=== PATIENT | female | born 1990 | race African-American/Black ===

== ENCOUNTER 2020-10-30 03:29 | Emergency (ER) | payer OTHER ==
[~2020-10-30] VITALS: Ht 167.6 cm; Wt 95.5 kg
--- NOTE | 2020-10-30 03:56 | PHYS DOC ---
Past Medical History Past Medical History: Anxiety, Asthma, Depression, GERD, IBS, Other Additional Past Medical Histor: HIRSCHPRUNGS (KENNA RIVERA DO) Past Surgical History: Gastric Bypass, Other Additional Past Surgical Histo: COLOSTOMY WITH TAKEDOWN, Hernia (KENNA RIVERA DO) Smoking Status: Current Every Day Smoker Alcohol Use: Heavy Drug Use: Marijuana (KENNA RIVERA DO) General Adult EDM: Chief Complaint: ABDOMINAL PAIN HPI: HPI: Patient is a 30 year old female presents with epigastric abdominal discomfort that started this evening with associated nausea and "dry heaves ". Patient reports history of recent laparoscopic hernia surgery in [place] on 10/13/2020. Patient reports symptoms started after she had taken several of her Percocet as well as drink some alcohol this evening. Patient does report history of prior gastric bypass surgery. Denies fever or chills. Denies known sick contacts. (KENNA RIVERA DO) Review of Systems: Review of Systems: Constitutional: Denies fever or chills Eyes: Denies redness or eye pain HENT: Denies nasal congestion or sore throat Respiratory: Denies cough or shortness of breath Cardiovascular: Denies chest pain or palpitations GI: Reports epigastric abdominal pain, nausea, and dry heaves : Denies dysuria or hematuria Musculoskeletal: Denies back pain or joint pain Integument: Denies rash or skin lesions Neurologic: Denies headache, focal weakness or sensory changes Complete systems were reviewed and found to be within normal limits, except as documented in this note. (KENNA RIVERA DO) Heart Score: C/O Chest Pain: N/A (KENNA RIVERA DO) C/O Chest Pain: N/A (STEVE WILEY DO) Current Medications: Current Medications Medications (Trade) Dose Ordered Sig/Geovanna Start Time Stop Time Status Last Admin Dose Admin Famotidine (Pepcid Vial) 20 mg 1X ONCE 10/30/20 04:00 10/30/20 04:01 UNV Ondansetron HCl (Zofran) 4 mg 1X ONCE 10/30/20 04:00 10/30/20 04:01 UNV Sodium Chloride 1,000 ml @ 1,000 mls/hr 1X ONCE 10/30/20 04:00 10/30/20 04:59 UNV (KENNA RIVERA DO) Allergies: Allergies: Allergies Coded Allergies Type Severity Reaction Last Updated Verified Penicillins Allergy 08/03/13 Yes (KENNA RIVERA DO) Physical Exam: PE: Constitutional: Well developed, well nourished, no acute distress, non-toxic appearance HENT: Normocephalic, atraumatic Eyes: Conjunctiva normal, no discharge Neck: Normal range of motion, supple Lungs & Thorax: No respiratory distress, equal chest rise and fall Abdomen: Soft, epigastric tenderness, no McBurney or Wadsworth sign Skin: Warm, dry, no erythema, no rash Back: No tenderness, no CVA tenderness Extremities: No tenderness, ROM intact, no edema Neurologic: Alert and oriented X 3, no focal deficits noted Psychologic: Affect anxious, judgment normal (KENNA RIVERA DO) EKG: EKG: @0351 NSR at 77bpm, NO ST elevation, QRS 80ms, QT/QTc 368/418ms (KENNA RIVERA DO) Radiology/Procedures: Radiology/Procedures: [] (KENNA RIVERA DO) Radiology/Procedures: [facility] [address] [place] [address] IMAGING REPORT Signed PATIENT: JANINE STEEL ACCOUNT: [id number] : 1990 LOCATION: ER AGE: 30 SEX: F EXAM STATUS: PRE ER ORD. PHYSICIAN: KENNA RIVERA DO REASON: abdominal pain, hx of recent hernia sugery 10/13/20 PROCEDURE: CT ABD PELV W/ORAL&IV CONTRAST CT ABDOMEN+PELVIS W History: abdominal pain, hx of recent hernia sugery 10/13/20 Comparison: None. Technique: After administration of intravenous contrast, helical CT of the abdomen and pelvis was performed from the lung bases through the ischial tuberosities. Coronal and sagittal reconstructions were obtained. 75 mL of Omnipaque 300 were used. One or more of the following dose reduction techniques were utilized: Automated exposure control (AEC), Adjustment of mA and/or kV according to patient size, Use of iterative reconstruction technique such as ASiR, CT scan done according to ALARA and image gently/image wisely Abdomen Findings: The visualized lung bases are clear. The liver, gallbladder, pancreas, spleen, and bilateral adrenal glands are normal. Symmetric renal enhancement. There is no focal renal mass. There is no hydronephrosis. Postsurgical changes of Oanh-en-Y gastric bypass. Tiny hiatal hernia. Normal caliber large bowel. Rectal anastomosis. There is no evidence of bowel obstruction. Appendix is not seen. There is no free fluid. There is no mesenteric or retroperitoneal adenopathy. The abdominal aorta is normal in caliber. Pelvis Findings: Urinary bladder is normal. Uterus is present No pelvic free fluid. There is no pelvic or inguinal adenopathy. There is no acute bony abnormality. IMPRESSION: No acute findings. No evidence of obstruction. No fluid collection. Electronically signed by: Shashank Tanner MD (10/30/2020 7:04 AM) [id number] DICTATED and SIGNED BY: SHASHANK TANNER MD DATE: 10/30/20 [id number] (STEVE WILEY DO) Course & Med Decision Making: Course & Med Decision Making Pertinent Labs and Imaging studies reviewed. (See chart for details) Patient presents with epigastric abdominal pain and nausea and dry heaves. History of recent laparoscopic hernia repair. Symptomatic treatment provided. IV fluid hydration given. Labs obtained and posted to chart. CT abdomen/pelvis pending. Signout given to Dr. Wiley for further evaluation and final disposition. Discussed current findings and plan with patient, who acknowledges understanding and agreement. (KENNA RIVERA DO) Course & Med Decision Making Patient is a 30-year-old female who presented to ER due to abdominal pain, CT scan her abdomen pelvis did not show any evidence of obstruction, no acute problem. Patient felt much better at this time. Patient will be discharged home. (STEVE WILEY DO) Dragon Disclaimer: Dragchristopher Disclaimer: This electronic medical record was generated, in whole or in part, using a voice recognition dictation system. (KENNA RIVERA DO) Departure Departure Impression: Primary Impression: Abdominal pain Qualified Codes: R10.13 - Epigastric pain Disposition: HOME / SELF CARE / HOMELESS Condition: IMPROVED Referrals: NON,STAFF (PCP) Please follow up with [facility] this week. [address], [address] [place] [address] Phone number: [phone] Patient Instructions: Abdominal Pain Additional Instructions: Thank you for visiting our Emergency Department. We appreciate you trusting us with your care. If any additional problems come up don't hesitate to return to visit us. Please follow up with your primary care provider so they can plan additional care if needed and know about the problem that you had. If symptoms worsen come back to the Emergency Department. Any concerning symptoms that start such as chest pain, shortness of air, weakness or numbness on one side of the body, running high fevers or any other concerning symptoms return to the ER. KENNA RIVERA DO October 30, 2020 03:56 STEVE WILEY DO October 30, 2020 07:14
[2020-10-30] MEDS ORDERED: ONDANSETRON PF 4 MG/2 ML VIAL. IVP ONE (04:00)
[2020-10-30] MEDS ORDERED: IV NORMAL SALINE 1000ML BAG 1,000 ML IV ONE (04:00)
[2020-10-30] MEDS ORDERED: FAMOTIDINE 20 MG/2 ML VIAL IVP ONE (04:00)
[2020-10-30 04:23] LABS: BILIRUBIN,URINE NEGATIVE (NEG); CLARITY,URINE CLOUDY; COLOR,URINE YELLOW; NITRITE,URINE NEGATIVE (NEG); PROTEIN,URINE NEGATIVE (NEG-TRACE)
[2020-10-30 04:59] LABS: BACTERIA,URINE FEW /HPF (0-FEW)
[2020-10-30] MEDS ORDERED: METOCLOPRAMIDE HCL 10 MG/2 ML VIAL. IVP ONE (05:00)
[2020-10-30] MEDS ORDERED: diphenhydrAMINE 50 MG/ML VIAL IVP ONE (05:00)
[2020-10-30 06:29] LABS: BASO % 1 % (0-3); EOS % 0 % (0-3); HEMATOCRIT 36.1 % (36.0-47.0); HEMOGLOBIN 11.8 g/dL (12.0-15.5); LYMPH # 1.4 x10^3/uL (1.0-4.8); LYMPH % 25 % (24-48); MEAN CORPUSCULAR HEMOGLOBIN 28 pg (25-35); MEAN CORPUSCULAR HGB CONC 33 g/dL (31-37); MEAN CORPUSCULAR VOLUME 85 fL (79-100); MONO # 0.4 x10^3/uL (0.0-1.1); MONO % 8 % (0-9); NEUT # 3.5 x10^3/uL (1.8-7.7); NEUT % 66 % (31-73); PLATELET COUNT 276 x10^3/uL (140-400); RED BLOOD COUNT 4.22 x10^6/uL (3.50-5.40); RED CELL DISTRIBUTION WIDTH 13.9 % (11.5-14.5); WHITE BLOOD COUNT 5.4 x10^3/uL (4.0-11.0)
[2020-10-30 06:40] LABS: CALCIUM 8.3 mg/dL (8.5-10.1); CREATININE 0.6 mg/dL (0.6-1.0); POTASSIUM 3.9 mmol/L (3.5-5.1)
[2020-10-30] MEDS ORDERED: IOHEXOL 300 MG/ML 100ML VIAL. IV ONE (06:45)
[2020-10-30] MEDS ORDERED: IOHEXOL 240 MG/ML 50ML VIAL. PO ONE (06:45)
[2020-10-30] MEDS ORDERED: CONTRAST GIVEN. MC PRN (06:45)
[2020-10-30 06:46] LABS: ALBUMIN 3.6 g/dL (3.4-5.0); ALBUMIN/GLOBULIN RATIO 1.2 (1.0-1.7); MAGNESIUM 1.8 mg/dL (1.8-2.4); TOTAL BILIRUBIN 0.3 mg/dL (0.2-1.0); TOTAL PROTEIN 6.7 g/dL (6.4-8.2)
--- NOTE | 2020-10-30 07:07 | RAD ---
CT ABDOMEN+PELVIS W History: abdominal pain, hx of recent hernia sugery 10/13/20 Comparison: None. Technique: After administration of intravenous contrast, helical CT of the abdomen and pelvis was per formed from the lung bases through the ischial tuberosities. Coronal and sagittal reconstructions wer e obtained. 75 mL of Omnipaque 300 were used. One or more of the following dose reduction techniques were utilized: Automated exposure control (AEC), Adjustment of mA and/or kV according to patient size , Use of iterative reconstruction technique such as ASiR, CT scan done according to ALARA and image g ently/image wisely Abdomen Findings: The visualized lung bases are clear. The liver, gallbladder, pancreas, spleen, and bilateral adrenal glands are normal. Symmetric renal enhancement. There is no focal renal mass. There is no hydronephrosis. Postsurgical changes of Oanh-en-Y gastric bypass. Tiny hiatal hernia. Normal caliber large bowel. Rec danya anastomosis. There is no evidence of bowel obstruction. Appendix is not seen. There is no free fluid. There is no mesenteric or retroperitoneal adenopathy. The abdominal aorta is normal in caliber. Pelvis Findings: Urinary bladder is normal. Uterus is present No pelvic free fluid. There is no pelvic or inguinal fredo nopathy. There is no acute bony abnormality. IMPRESSION: No acute findings. No evidence of obstruction. No fluid collection. Electronically signed by: Angus Tanner MD (10/30/2020 7:04 AM) [id number]
[2020-10-30 07:50] VITALS: BP 125/77
--- NOTE | 2020-10-30 19:01 | EKG ---
[facility] [address] [place] [address] Test Date: 2020-10-30 Test Time: 03:51:37 Pat Name: JANINE STEEL Department: Room: Gender: F Physician Relations Representative: : 1990 Requested By: KENNA RIVERA Order Number: [id number] Reading MD: Measurements Intervals [place] Rate: 77 P: 38 [place]: 178 QRS: 20 QRSD: 80 T: 20 QT: 368 QTc: 418 Interpretive Statements SINUS RHYTHM NORMAL ECG RI6.02 No previous ECG available for comparison
== END 2020-10-30 07:54 | disposition home or self-care (01) ==
LOC: ER 03:29
DX: R10.13 Epigastric pain (principal); R11.0 Nausea; J45.909 Unspecified asthma, uncomplicated; K21.9 Gastro-esophageal reflux disease without esophagitis; K58.9 Irritable bowel syndrome, unspecified; F17.200 Nicotine dependence, unspecified, uncomplicated; Z95.1 Presence of aortocoronary bypass graft; Z93.3 Colostomy status; Z88.0 Allergy status to penicillin
CPT/HCPCS: 36415; 74177; 80053; 81001; 81025; 83605; 83690; 83735; 85025; 93005; 96361; 96374; 96375; 99285; J1200; J2405; J2765; J3490; J7030; Q9966; Q9967